=== PATIENT | male | born 1985 | race Caucasian/White ===

== ENCOUNTER 2018-12-06 14:14 | Emergency (ER) | payer MEDICAID ==
[~2018-12-06] VITALS: Ht 177.8 cm; Wt 744.3 kg
[2018-12-06] MEDS ORDERED: ELVI1TAB3 PO (15:08)
[2018-12-06] MEDS ORDERED: SULFAMETH/TRIMETH 800/160 MG TABLET PO ONE (15:15)
[2018-12-06] MEDS ORDERED: LIDOCAINE 1%-EPI 1:100,000 20 ML VIAL TP ONE (15:15)
[2018-12-06] MEDS ORDERED: CEphaleXIN 500 MG CAPSULE PO ONE (15:15)
--- NOTE | 2018-12-06 15:47 | NUR ---
Seen by Dr Mejias. for I/d abscess
[2018-12-06] MEDS ORDERED: SULFAMETH/TRIMETH 800/160 MG TABLET ONE (16:02)
[2018-12-06] MEDS ORDERED: CEphaleXIN 500 MG CAPSULE ONE (16:03)
--- NOTE | 2018-12-06 16:35 | NUR ---
I/D done by MD at the bedside. medications keflex and bactrim given p-o
--- NOTE | 2018-12-06 16:50 | NUR ---
exitcare, prescriptions and homegoing instructions given. discharged home
[2018-12-06 16:52] VITALS: BP 118/54
== END 2018-12-06 16:53 | disposition home or self-care (01) ==
LOC: ER 14:14
DX: L02.31 Cutaneous abscess of buttock (principal)
CPT/HCPCS: 10060; 99283; J3490; A4663